=== PATIENT | female | born 1940 | race Caucasian/White ===

== ENCOUNTER → 2016-07-11 | Outpatient (CLI) | payer MEDICARE, OTHER ==
[~2016-07-11] MED LIST: SINCALIDE (KINEVAC) 5 MCG ONE
== END | disposition home or self-care (01) ==
LOC: PETCFH 12:31
DX: R10.13 Epigastric pain (principal); R06.00 Dyspnea, unspecified
CPT/HCPCS: 78227; A9537; J2805